=== PATIENT | male | born 1990 | race Two or more races ===

== ENCOUNTER 2021-12-08 13:34 | Inpatient (IN) | payer MEDICAID ==
[~2021-12-08] VITALS: Ht 172.7 cm; Wt 56.7 kg
[2021-12-08 14:24] LABS: BASOPHILS # (AUTO) 0.1 K/uL (0.0-0.2); BASOPHILS % (AUTO) 0.5 % (0.0-2.0); HEMATOCRIT 44 % (39-51); LYMPHOCYTES # (AUTO) 1.8 K/uL (0.8-4.8); LYMPHOCYTES % (AUTO) 10.9 % (20.0-44.0); MEAN CORPUSCULAR HGB CONC 32 g/dl (31.0-36.0); MEAN CORPUSCULAR VOLUME 93 fL (80-96); MONOCYTES % (AUTO) 5.9 % (2.0-12.0); NEUTROPHILS # (AUTO) 13.5 K/uL (1.8-8.9); NEUTROPHILS % (AUTO) 82.7 % (43.0-81.0); PLATELET COUNT (AUTO) 299 K/uL (150-450); RED BLOOD CELL COUNT(AUTO) 4.75 MIL/uL (4.5-6.0); WHITE BLOOD COUNT (AUTO) 16.3 K/uL (4.3-11.0)
--- NOTE | 2021-12-08 14:35 | NUR ---
c/o chest pain 10/10 x 5 days awke and alert hr 125b/min tachypnea rr 28/hin ekg done
--- NOTE | 2021-12-08 14:40 | NUR ---
blood drow by nurse at bed side
[2021-12-08 14:46] LABS: CALCIUM, SERUM 9.6 mg/dL (8.5-10.1); CHLORIDE 97 mmol/L (98-107); CREATININE 1.6 mg/dL (0.6-1.3); SODIUM SERUM 134 mmol/L (136-145); UREA NITROGEN, BLOOD 20 mg/dL (7-18)
[2021-12-08 14:50] LABS: POTASSIUM 6.2 mmol/L (3.5-5.1)
[2021-12-08 14:51] LABS: CARBON DIOXIDE 8 mmol/L (21-32); GLUCOSE 404 mg/dL (74-106)
[2021-12-08] MEDS ORDERED: IV NS 0.9% 1,000 ML IV PRN (15:00)
[2021-12-08] MEDS ORDERED: INSULIN REGULAR, HUMAN 100 UNITS in IV NS 0.9% 100 ML IV PRN ×2 (15:00)
--- NOTE | 2021-12-08 15:08 | NUR ---
COVID ANTIGEN SWAB DONE AND SENT TO THE LAB
[2021-12-08] MEDS ORDERED: INSU100I8 SQ (15:10)
[2021-12-08] MEDS ORDERED: INSU100I26 SQ (15:10)
[2021-12-08] MEDS ORDERED: OMEP20TA5 PO (15:10)
--- NOTE | 2021-12-08 15:45 | NUR ---
STERTED INSULIN DRIP 100UNIT IN NS 100 AT 2 UNIT /HR INFUTION AND PATENT closlsly observe pt
[2021-12-08 15:54] LABS: CREATININE 1.7 mg/dL (0.6-1.3); PHOSPHORUS 3.8 mg/dL (2.5-4.9)
[2021-12-08 16:03] LABS: POTASSIUM 4.8 mmol/L (3.5-5.1)
[2021-12-08] MEDS ORDERED: ONDANSETRON HCL/PF 4 MG/2 ML VIAL ONE (16:35)
--- NOTE | 2021-12-08 16:45 | NUR ---
pt fully awake and aler no pain noted
[2021-12-08] MEDS ORDERED: ONDANSETRON HCL/PF 4 MG/2 ML VIAL IV ONE (17:00)
[2021-12-08 17:26] LABS: BILIRUBIN,URINE SMALL (NEGATIVE); COLOR,URINE YELLOW (YELLOW); LEUKOCYTE ESTERASE ,URINE NEGATIVE (NEGATIVE); NITRITE, URINE NEGATIVE (NEGATIVE); PH,URINE 5.5 (5.0-8.0); PROTEIN,URINE TRACE mg/dl (NEGATIVE); UGLUCOSE 500 MG/DL mg/dL (NEGATIVE); UROBILINOGEN,URINE 0.2 EU/dL (0.2)
[2021-12-08 17:42] LABS: CREATININE 1.6 mg/dL (0.6-1.3); POTASSIUM 4.9 mmol/L (3.5-5.1)
[2021-12-08 17:52] LABS: MAGNESIUM 2.1 mg/dL (1.8-2.4)
[2021-12-08 18:02] LABS: BACTERIA,URINE Many /HPF (None Seen)
[2021-12-08 18:03] LABS: SQUAMOUS EPITHELIAL CELL,UR Many /HPF (None Seen); YEAST,URINE Few /HPF (None Seen)
--- NOTE | 2021-12-08 18:35 | NUR ---
CONTENUE insuline drip at 2unit/hr infused and patent
[2021-12-08] MEDS ORDERED: ONDANSETRON HCL/PF 4 MG/2 ML VIAL IVP PRN (19:00)
[2021-12-08] MEDS ORDERED: MAG HYDROX/AL HYDROX/SIMETH 30 ML UDC PO PRN (19:00)
[2021-12-08] MEDS ORDERED: ACETAMINOPHEN 325 MG TABLET PO PRN (19:00)
[2021-12-08] MEDS ORDERED: MAGNESIUM HYDROXIDE 30 ML UDC PO PRN (19:00)
[2021-12-08] MEDS ORDERED: Z GUARD REMEDY 4 OZ OINT TP PRN (19:00)
--- NOTE | 2021-12-08 19:10 | NUR ---
WATING FOR icu bed contenue insulin drip at 2 unithr
[2021-12-08] MEDS: IV NS 0.9% 1,000 ML IV SCH (19:11)
[2021-12-08 19:23] LABS: ABG BASE EXCESS -21.3 mmol/L; ABG PO2 131.9 mmHg (75.0-100.0); COHb 0.3 % (0.5-1.5); MetHb 0.4 % (0.0-1.5); O2Hb 97.5 % (94.0-97.0); SITE, ABG Right Radial; VENT MODE, BG ROOM AIR
--- NOTE | 2021-12-08 19:25 | NUR ---
hand off to SERENA RN PT awke and alert respiration spoon and easy room air 100%
[2021-12-08] MEDS ORDERED: INSULIN REGULAR, HUMAN 100 UNIT in IV NS 0.9% 99 ML IV PRN ×2 (20:30)
[2021-12-08 20:59] LABS: CREATININE 1.6 mg/dL (0.6-1.3); PHOSPHORUS 3.1 mg/dL (2.5-4.9); POTASSIUM 4.4 mmol/L (3.5-5.1)
--- NOTE | 2021-12-08 21:30 | NUR ---
REPORT GIVEN TO RUTH ANN AWAN
--- NOTE | 2021-12-08 22:10 | NUR ---
RN NOTE RECEIVED PATIENT FROM ER, TRANSFERRED TO ROOM 261. PATIENT SAFELY TRANSFERRED SELF TO BED. PATIENT IS ALERT AND ORIENTED X4, ABLE TO MAKE NEEDS KNOWN. ON ROOM AIR, NO S/S OF ANY ACUTE RESPIRATORY DISTRESS. ADMITTING DX: DKA. RECEIVED PATIENT FROM ER WITH INSULIN DRIP AT 2.02 UNITS/HR AND NS @ 125ML/HR INFUSING ON RIGHT AC #20. NO S/S OF INFILTRATION. COMPLAINED OF MILD CHEST PAIN AND BELOW RIB PAIN AND NAUSEA. VOMITED X1 DARK BLOOD TINGED LIQUID. WILL ADMINISTER ZOFRAN PRN. ORIENTED PATIENT TO STAFF, ROOM, AND USE OF CALL LIGHT. BED LOCKED AND IN LOWEST POSITION. CALL LIGHT WITHIN REACH. ALL NEEDS ANTICIPATED.
--- NOTE | 2021-12-08 22:12 | NUR ---
PATIENT TRANSFERRED UNDER ACLS
[2021-12-08 22:27] VITALS: BP 156/105
[2021-12-08 22:30] VITALS: BP 160/90
[2021-12-08 23:00] VITALS: BP 135/102
[2021-12-08] MEDS: BLOOD SUGAR DIAGNOSTIC 1 EACH STRIP IN SCH (23:05)
[2021-12-08 23:30] VITALS: BP 139/97
[2021-12-09] VITALS (37 sets, daily range): BP systolic 135–167; BP diastolic 82–104
[2021-12-09] MEDS: BLOOD SUGAR DIAGNOSTIC 1 EACH STRIP IN SCH ×22 (00:08→23:02)
[2021-12-09 00:44] LABS: CALCIUM, SERUM 8.9 mg/dL (8.5-10.1); CREATININE 1.4 mg/dL (0.6-1.3); MAGNESIUM 2.1 mg/dL (1.8-2.4); PHOSPHORUS 2.5 mg/dL (2.5-4.9); POTASSIUM 4.3 mmol/L (3.5-5.1)
--- NOTE | 2021-12-09 00:58 | NUR ---
RN NOTE RELAYED LAB (BMP,PHOS,MAG) TO BARRON MORALES. NOTIFIED BARRON PATIENT'S 0000 ACCUCHECK 127, ON INSULIN 1.9U/HR AND NS @ 125ML/HR. RECEIVED NO NEW ORDERS AT THIS TIME. WILL CONTINUE TO MONITOR.
--- NOTE | 2021-12-09 02:21 | NUR ---
RN NOTE NOTIFIED [facility] MORALES, PATIENT'S 0200 ACCUCHECK-107 AND REMAINS ON NS @ 125ML/HR. RECEIVED NEW ORDER WHEN BG<100, CHANGE FLUIDS TO D5NS @ 125ML/HR NOTED AND CARRIED OUT.
[2021-12-09] MEDS ORDERED: IV D5/ 0.9% NACL 1,000 ML IV PRN (03:00)
[2021-12-09 04:50] LABS: BASOPHILS % (AUTO) 0.1 % (0.0-2.0); EOSINOPHILS % (AUTO) 0.2 % (0.0-6.0); HEMATOCRIT 42 % (39-51); HEMOGLOBIN 13.8 g/dL (13.5-17.5); LYMPHOCYTES # (AUTO) 1.3 K/uL (0.8-4.8); LYMPHOCYTES % (AUTO) 6.8 % (20.0-44.0); MEAN CORPUSCULAR HGB CONC 33 g/dl (31.0-36.0); MEAN CORPUSCULAR VOLUME 92 fL (80-96); MONOCYTES # (AUTO) 1.4 K/uL (0.1-1.30); MONOCYTES % (AUTO) 7.8 % (2.0-12.0); NEUTROPHILS # (AUTO) 15.8 K/uL (1.8-8.9); NEUTROPHILS % (AUTO) 85.1 % (43.0-81.0); PLATELET COUNT (AUTO) 253 K/uL (150-450); RED BLOOD CELL COUNT(AUTO) 4.63 MIL/uL (4.5-6.0); WHITE BLOOD COUNT (AUTO) 18.6 K/uL (4.3-11.0)
[2021-12-09 04:57] LABS: CALCIUM, SERUM 8.3 mg/dL (8.5-10.1); CREATININE 1.4 mg/dL (0.6-1.3); MAGNESIUM 1.9 mg/dL (1.8-2.4); PHOSPHORUS 2.3 mg/dL (2.5-4.9); POTASSIUM 4.2 mmol/L (3.5-5.1)
[2021-12-09] MEDS: IV NS 0.9% 1,000 ML IV SCH (05:45)
--- NOTE | 2021-12-09 06:47 | NUR ---
RN NOTE PATIENT IS RESTING IN BED. ON ROOM AIR, NO SOB NOTED. IV ACCESS ON RIGHT AC #20 INSULIN DRIP AT 1.6 UNITS/HR AND NS @ 125ML/HR. NO S/S OF INFILTRATION. ALL NEEDS ATTENDED PROMPTLY. VOIDED X1, 300ML NOTED. BED LOCKED AND IN LOWEST POSITION. CALL LIGHT WITHIN REACH. WILL ENDORSE TO AM SHIFT.
[2021-12-09] MEDS ORDERED: IV D5/0.45 NACL 1,000 ML IV ONE (09:00)
[2021-12-09] MEDS: IV D5/0.45 NACL 1,000 ML IV PRN ×2 (09:32→19:11)
[2021-12-09 10:40] LABS: CALCIUM, SERUM 8.3 mg/dL (8.5-10.1); CREATININE 1.3 mg/dL (0.6-1.3); POTASSIUM 3.5 mmol/L (3.5-5.1)
[2021-12-09] MEDS ORDERED: K PHOS NEUTRAL 250 MG TABLET PO ONE (12:00)
[2021-12-09 14:35] LABS: CALCIUM, SERUM 8.4 mg/dL (8.5-10.1); CREATININE 1.3 mg/dL (0.6-1.3); POTASSIUM 3.4 mmol/L (3.5-5.1)
--- NOTE | 2021-12-09 15:34 | NUR ---
DR HOWELL WAS NOTIFIED OF THE RECENT K+ LEVEL=3.4 AND ANION GAP =17 AND RECENT CMP RESULT
--- NOTE | 2021-12-09 16:12 | NUR ---
WITH NEW ORDERS NOTED AT THIS TIME.
[2021-12-09] MEDS ORDERED: POTASSIUM CHLORIDE 20 MEQ TAB.PRT.SR PO ONE (17:00)
--- NOTE | 2021-12-09 19:10 | NUR ---
PT. RESTING COMFORTABLY ON BED, ALL NEEDS ATTENDED. NO SSx OF DISTRESS NOTED AT THIS TIME. CALL LIGHT IN REACH. ENDORSED TO CHRIS FOR CONTINUITY OF CARE.
[2021-12-09 19:12] LABS: CALCIUM, SERUM 8.1 mg/dL (8.5-10.1); CREATININE 1.2 mg/dL (0.6-1.3); POTASSIUM 3.4 mmol/L (3.5-5.1)
--- NOTE | 2021-12-09 19:45 | NUR ---
RN NOTE RECEIVED PT AWAKE, AOX4. NOT IN ANY DISTRESS. DENIES ANY SOB OR PAIN. ON INSULIN DRIP AT 2.39U/HR. AND D5 1/2 NS AT 100 ML/HR, INFUSING WELL. WILL CONTINUE TO MONITOR.
--- NOTE | 2021-12-09 20:28 | NUR ---
RN NOTE NOTIFIED CASHIER HOST/HOSTESS EL MORALES REGARDING PT POTASSIUM STILL 3.4. AIRCRAFT MACHINIST ORDERED TO GIVE KCL 10MEQ IV X1.
[2021-12-09] MEDS ORDERED: POTASSIUM CHLORIDE 10 MEQ/50 ML PREMIXED IVPB FOR PERIPHERAL LINE IV ONE (20:30)
[2021-12-09 22:36] LABS: CALCIUM, SERUM 8.4 mg/dL (8.5-10.1); CREATININE 1.1 mg/dL (0.6-1.3); POTASSIUM 3.8 mmol/L (3.5-5.1)
--- NOTE | 2021-12-09 23:03 | NUR ---
RN NOTE ANION GAP 12. RELAYED TO EL MORALES. ORDERED TO DC INSULIN DRIP AND CONTINUE WITH IV FLUIDS.
--- NOTE | 2021-12-09 23:27 | NUR ---
RN NOTE JAVA FRONT END WEB DEVELOPER CARMEN, ORDERED MODERATE SLIDING SCALE ACCUCHECK Q4H. CHARGE NURSE MADE AWARE.
[2021-12-09] MEDS ORDERED: DEXTROSE 50%-WATER 50 ML DISP.SYRIN IV PRN (23:30)
[2021-12-10] VITALS (11 sets, daily range): BP systolic 124–154; BP diastolic 74–93
[2021-12-10] MEDS ORDERED: BLOOD SUGAR DIAGNOSTIC 1 EACH STRIP IN SCH
[2021-12-10] MEDS: INSULIN REGULAR, HUMAN 100 UNIT/ML 3 ML VIAL SQ PRN ×3 (00:45→08:31)
[2021-12-10] MEDS: BLOOD SUGAR DIAGNOSTIC 1 EACH STRIP IN SCH ×3 (00:45→08:26)
[2021-12-10] MEDS ORDERED: INSULIN REGULAR, HUMAN 100 UNIT/ML 3 ML VIAL ONE (01:16)
[2021-12-10] MEDS: IV D5/0.45 NACL 1,000 ML IV PRN (04:37)
--- NOTE | 2021-12-10 06:35 | NUR ---
RN NOTE PT AWAKE, NOT IN ANY DISTRESS, NO CHANGES IN LOC. DENIES ANY PAIN OR SOB. CONTINUE ON IVFLUIDS D51/2 NS AT 100ML/HR, INFUSING WELL. INSULIN COVERAGE GIVEN PER SLIDING SCALE. WILL ENDORSE TO NEXT SHIFT NURSE FOR PEREZ.
--- NOTE | 2021-12-10 07:41 | NUR ---
RN OPENING NOTES PT A/O X4 , NO C/O PAIN, NO DISTRESS NO SOB, NO LABORED BREATHING, IV RA #20 GAUGE INTACT, PATENT, D5 1/2 NS INFUSING 100ML/HR PER ORDER, BED LOW TO FLOOR, WHEELS LOCKED, CALL LIGHT IN REACH, ALL NEEDS MET AT THIS TIME.
--- NOTE | 2021-12-10 09:14 | NUR ---
MD ASSESSED PT FOR D/C HOME, ASSISTED PT TO AMBULATE AROUND NURSING STATION PT ABLE TO AMBULATE ON OWN AT FULL STRENGTH, NO WEAKNESS NOTED, NO C/O PAIN, PT CALLED MOTHER / FAMILY TO DEPUTY BRAND INSPECTOR , ALL VS IN NORMAL BASELINE RANGE , NO NAUSEA NO EMESIS NOTED DURING AM SHIFT, ATE BREAKFAST AND ABLE TO HOLD IT DOWN WITH NO DISCOMFORT, BED LOW TO FLOOR ALL WHEELS LOCKED, CALL LIGHT IN PLACE. WILL PROCEED WITH D/C INFO RN CANDY PACKER NOTIFIED. FAMILY NOTIFIED.
--- NOTE | 2021-12-10 10:39 | NUR ---
MD APPROVED D/C, EDUCATIONAL INFO ON DM TYPE I PRINTED OUT AND DISCUSSION PROVIDED TO HELP PT UNDERSTAND TO MONITOR BS LEVELS DAILY PER PRIMARY MD ORDERS, PT CONTACTED MOTHER SHE WILL NON DESTRUCTIVE EVALUATION SPECIALIST 10:40 AM , PT AMBULATED WITH MYSELF FROM [facility] TO FRONT DOOR OF HOSPITAL SAFE TRANSFER OUT , ALL VS IN BASELINE NORMAL RANGE, NO C/O PAIN NO SOB NOTED, ALL BELONGINGS TAKEN WITH PATIENT, FAMILY NOTIFIED , MD AWARE OF D/C. IV REMOVED SITE CLEANSED AND GAUZE/TAPE APPLIED NO SIGNIFICANT BLEEDING NOTED.
[2021-12-10] MEDS ORDERED: K PHOS NEUTRAL 250 MG TABLET PO ONE (11:00)
== END 2021-12-10 11:31 | disposition home or self-care (01) | DRG 420 ==
LOC: ER 13:41 → TRANSITION 18:37 → ICU 19:56
PROVIDERS: ADMIT Internal Medicine; ATTEND Internal Medicine
DX: E10.10 Type 1 diabetes mellitus with ketoacidosis without coma (principal); N17.0 Acute kidney failure with tubular necrosis; E87.5 Hyperkalemia; Z20.822 Contact with and (suspected) exposure to COVID-19; E87.1 Hypo-osmolality and hyponatremia; K52.9 Noninfective gastroenteritis and colitis, unspecified; Z91.14 Patient's other noncompliance with medication regimen; Z79.4 Long term (current) use of insulin; E86.1 Hypovolemia
CPT/HCPCS: 36415; 36600; 71045-TC; 80048-TC; 81001; 82010-TC; 82962-TC; 83735-TC; 84100-TC; 84484-TC; 85025-TC; 87081-TC; 87086-TC; C9803; G0378; J1815; J2405; J3480; J3490; J7030

== ENCOUNTER 2022-09-20 20:10 | Emergency (ER) | payer MEDICAID ==
[~2022-09-20] VITALS: Ht 170.2 cm; Wt 63.5 kg
[~2022-09-20 20:10] MED LIST: INSU100I26 SQ; INSU100I8 SQ; OMEP20TA5 PO
--- NOTE | 2022-09-20 21:43 | NUR ---
BRISA BS 249; DR. KELSEA ROSALES AWARE
--- NOTE | 2022-09-20 21:45 | NUR ---
Dr. Gonzales at bedside.
--- NOTE | 2022-09-20 21:53 | NUR ---
XRAY DONE AT BEDSIDE
--- NOTE | 2022-09-20 21:58 | NUR ---
Urine sample collected and sent to lab.
[2022-09-20] MEDS ORDERED: ONDANSETRON HCL/PF 4 MG/2 ML VIAL IVP ONE (22:00)
[2022-09-20] MEDS ORDERED: FAMOTIDINE/PF INJ 20 MG/2 ML VIAL IV ONE ×2 (22:00→22:33)
[2022-09-20] MEDS ORDERED: IV NS 0.9% 1,000 ML BAG IV ONE (22:00)
[2022-09-20 22:31] LABS: ABG BASE EXCESS 1.1 mmol/L; ABG PCO2 45.4 mmHg (35.0-45.0); ABG PH 7.385 (7.350-7.450); ABG PO2 23.7 mmHg (75.0-100.0); COHb 0.8 % (0.5-1.5); MetHb 0.4 % (0.0-1.5); O2Hb 47.1 % (94.0-97.0); SITE, ABG Left Radial; VENT MODE, BG ROOM AIR
--- NOTE | 2022-09-20 22:31 | NUR ---
IV RONN INSERTED ON LEFT FA G20. BLOOD DRAWN AND SENT TO LAB
[2022-09-20] MEDS ORDERED: ONDANSETRON HCL/PF 4 MG/2 ML VIAL ONE (22:33)
[2022-09-20 22:52] LABS: BILIRUBIN,URINE 1+ (NEGATIVE); COLOR,URINE YELLOW (YELLOW); LEUKOCYTE ESTERASE ,URINE NEGATIVE (NEGATIVE); NITRITE, URINE NEGATIVE (NEGATIVE); PH,URINE 5.5 (5.0-8.0); PROTEIN,URINE NEGATIVE (NEGATIVE); UGLUCOSE 3+ mg/dL (NEGATIVE); UROBILINOGEN,URINE 0.2 EU/dL (0.2)
[2022-09-20 23:26] LABS: BASOPHILS # (AUTO) 0.1 K/uL (0.0-0.2); BASOPHILS % (AUTO) 0.7 % (0.0-2.0); EOSINOPHILS % (AUTO) 1.1 % (0.0-6.0); HEMATOCRIT 37 % (39-51); HEMOGLOBIN 12.3 g/dL (13.5-17.5); LYMPHOCYTES # (AUTO) 2.1 K/uL (0.8-4.8); LYMPHOCYTES % (AUTO) 25.4 % (20.0-44.0); MEAN CORPUSCULAR HGB CONC 34 g/dl (31.0-36.0); MEAN CORPUSCULAR VOLUME 87 fL (80-96); MONOCYTES # (AUTO) 0.5 K/uL (0.1-1.30); MONOCYTES % (AUTO) 5.7 % (2.0-12.0); NEUTROPHILS # (AUTO) 5.7 K/uL (1.8-8.9); NEUTROPHILS % (AUTO) 67.1 % (43.0-81.0); PLATELET COUNT (AUTO) 232 K/uL (150-450); RED BLOOD CELL COUNT(AUTO) 4.21 MIL/uL (4.5-6.0); WHITE BLOOD COUNT (AUTO) 8.4 K/uL (4.3-11.0)
[2022-09-20 23:45] LABS: BACTERIA,URINE Rare /HPF (None Seen); RBC,URINE 0-2 /HPF (0-2); SQUAMOUS EPITHELIAL CELL,UR Rare /HPF (None Seen); WBC,URINE 0-2 /HPF (0-3); YEAST,URINE Moderate /HPF (None Seen)
[2022-09-20 23:50] LABS: CALCIUM, SERUM 9.3 mg/dL (8.5-10.1); CARBON DIOXIDE 31 mmol/L (21-32); CHLORIDE 96 mmol/L (98-107); CREATININE 1.5 mg/dL (0.6-1.3); GLUCOSE 248 mg/dL (74-106); POTASSIUM 4.4 mmol/L (3.5-5.1); SODIUM SERUM 133 mmol/L (136-145); UREA NITROGEN, BLOOD 22 mg/dL (7-18)
[2022-09-20 23:56] LABS: ALANINE AMINOTRANSFERASE 28 U/L (12-78); ALKALINE PHOSPHATASE 110 U/L (46-116); ASPARTATE AMINOTRANSFERASE 22 U/L (15-37); BILIRUBIN,DIRECT 0.2 mg/dL (0.0-0.2); BILIRUBIN,TOTAL 0.9 mg/dL (0.2-1.0); LIPASE 100 U/L (73-393); TOTAL PROTEIN, SERUM 7.3 g/dL (6.4-8.2)
[2022-09-21] MEDS ORDERED: INSULIN REGULAR, HUMAN 100 UNIT/ML 10 ML VIAL SQ ONE (00:30)
[2022-09-21] MEDS ORDERED: INSULIN REGULAR, HUMAN 100 UNIT/ML 10 ML VIAL ONE (00:36)
[2022-09-21] MEDS ORDERED: ONDA4TAB5 PO (00:44)
[2022-09-21] MEDS ORDERED: INSU100I30 SQ (00:44)
--- NOTE | 2022-09-21 00:45 | NUR ---
Dr. Gonzales at bedside.
--- NOTE | 2022-09-21 01:05 | NUR ---
IV removed. Catheter intact and site benign. Pressure and 4x4 applied to site. No bleeding noted.
--- NOTE | 2022-09-21 01:05 | NUR ---
Patient discharged to home in stable condition. Written and verbal after care instructions given. Patient verbalizes understanding of instruction.
[2022-09-21 01:06] VITALS: BP 125/70
== END 2022-09-21 01:07 | disposition home or self-care (01) ==
LOC: ER 20:14
DX: E11.65 Type 2 diabetes mellitus with hyperglycemia (principal); Z79.899 Other long term (current) drug therapy
CPT/HCPCS: 99285; 96374; 71045; 96375; 93005; 82803; 85025; 80048; 87086; 82010; 83690; 80076; 81001; 36415; 84484; 82962; 36600 ×2; 96372; J3490; J2405; J7030; J1815

== ENCOUNTER 2022-12-28 13:45 | Inpatient (IN) | payer MEDICAID ==
[~2022-12-28] VITALS: Ht 172.7 cm; Wt 57.2 kg
[~2022-12-28 13:45] MED LIST changes: +INSU100I30 SQ; +ONDA4TAB5 PO
--- NOTE | 2022-12-28 14:00 | NUR ---
BLOOD GLUCOSE READING, HIGH
[2022-12-28] MEDS ORDERED: ONDANSETRON HCL/PF 4 MG/2 ML VIAL ONE (14:23)
--- NOTE | 2022-12-28 14:29 | NUR ---
24G IV ESTABLISHED L FA. LABS DRAWN AND COLLECTED AT BEDSIDE.
[2022-12-28] MEDS ORDERED: ONDANSETRON HCL/PF 4 MG/2 ML VIAL IV ONE (14:30)
[2022-12-28] MEDS ORDERED: IV NS 0.9% 250 ML BAG IV ONE (14:30)
[2022-12-28] MEDS ORDERED: IV NS 0.9% 1,000 ML IV ONE (15:00)
--- NOTE | 2022-12-28 15:16 | NUR ---
urine collected and sent to the lab
[2022-12-28 15:23] LABS: BASOPHILS # (AUTO) 0.1 K/uL (0.0-0.2); BASOPHILS % (AUTO) 0.5 % (0.0-2.0); HEMATOCRIT 46 % (39-51); HEMOGLOBIN 13.2 g/dL (13.5-17.5); LYMPHOCYTES # (AUTO) 0.6 K/uL (0.8-4.8); LYMPHOCYTES % (AUTO) 2.7 % (20.0-44.0); MEAN CORPUSCULAR HGB CONC 29 g/dl (31.0-36.0); MEAN CORPUSCULAR VOLUME 104 fL (80-96); MONOCYTES % (AUTO) 9.3 % (2.0-12.0); NEUTROPHILS # (AUTO) 19.2 K/uL (1.8-8.9); NEUTROPHILS % (AUTO) 87.5 % (43.0-81.0); PLATELET COUNT (AUTO) 338 K/uL (150-450); RED BLOOD CELL COUNT(AUTO) 4.38 MIL/uL (4.5-6.0)
[2022-12-28 15:29] LABS: BILIRUBIN,URINE 1+ (NEGATIVE); COLOR,URINE YELLOW (YELLOW); LEUKOCYTE ESTERASE ,URINE NEGATIVE (NEGATIVE); NITRITE, URINE NEGATIVE (NEGATIVE); PH,URINE 5.5 (5.0-8.0); PROTEIN,URINE NEGATIVE (NEGATIVE); UGLUCOSE 3+ mg/dL (NEGATIVE); UROBILINOGEN,URINE 0.2 EU/dL (0.2)
[2022-12-28] MEDS ORDERED: MORPHINE SULFATE INJ 2 MG/ML DISP.SYRIN IV ONE (15:30)
[2022-12-28 15:47] LABS: BACTERIA,URINE Few /HPF (None Seen); RBC,URINE 0-2 /HPF (0-2); WBC,URINE NONE SEEN /HPF (0-3)
[2022-12-28 15:48] LABS: SQUAMOUS EPITHELIAL CELL,UR Few /HPF (None Seen)
--- NOTE | 2022-12-28 15:51 | NUR ---
[facility] CALLED FINANCIAL ADMINISTRATION OFFICER PAGED.
[2022-12-28] MEDS ORDERED: MORPHINE SULFATE INJ 4 MG/ML DISP.SYRIN ONE (15:56)
[2022-12-28 15:57] LABS: ALBUMIN 3.9 g/dL (3.4-5.0); BILIRUBIN,DIRECT 0.2 mg/dL (0.0-0.2); BILIRUBIN,TOTAL 1.1 mg/dL (0.2-1.0); CALCIUM, SERUM 9.8 mg/dL (8.5-10.1); CREATININE 3.1 mg/dL (0.6-1.3); MAGNESIUM 3.3 mg/dL (1.8-2.4); PHOSPHORUS 6.5 mg/dL (2.5-4.9); POTASSIUM 5.7 mmol/L (3.5-5.1); TOTAL PROTEIN, SERUM 8.2 g/dL (6.4-8.2)
[2022-12-28 16:26] LABS: SITE, VBG Right Radial; VBG COHb 0.3 %; VBG MetHb 0.4 %; VBG O2Hb 96.3 %; VENT MODE, VBG 21%
--- NOTE | 2022-12-28 16:26 | NUR ---
[facility] CALLED, ROAD MENDER PAGED.
[2022-12-28] MEDS ORDERED: IV NS 0.9% 1,000 ML IV PRN (16:30)
--- NOTE | 2022-12-28 16:36 | NUR ---
BG 1045
--- NOTE | 2022-12-28 16:50 | NUR ---
RAC 20G
--- NOTE | 2022-12-28 16:54 | NUR ---
covid swab collected and sent to lab
[2022-12-28] MEDS: INSULIN REGULAR, HUMAN 100 UNITS in IV NS 0.9% 100 ML IV PRN ×4 (17:05→18:49)
[2022-12-28 17:09] LABS: CALCIUM, SERUM 8.5 mg/dL (8.5-10.1); CREATININE 2.7 mg/dL (0.6-1.3); MAGNESIUM 2.9 mg/dL (1.8-2.4); PHOSPHORUS 5.7 mg/dL (2.5-4.9); POTASSIUM 5.5 mmol/L (3.5-5.1)
--- NOTE | 2022-12-28 17:14 | NUR ---
GOT BED 258 ADMITTING INFORMED.
--- NOTE | 2022-12-28 17:43 | NUR ---
HANDOFF REPORT GIVEN TO MIGUEL VALLECILLO FOR INPATIENT SERVICES.
--- NOTE | 2022-12-28 18:10 | NUR ---
PT TRANSFERED W/ ACLS PROTOCOL RN AND EMT AT BEDSIDE. VITAL STABLE THROUGHT [facility] ([place] ICU NURSE AT BEDSIDE TO RECEIVE PT./.
[2022-12-28 18:25] VITALS: BP 148/92
[2022-12-28] MEDS ORDERED: INSULIN REGULAR, HUMAN 100 UNIT in IV NS 0.9% 99 ML IV PRN ×4 (18:30→19:00)
[2022-12-28] MEDS ORDERED: ONDANSETRON HCL/PF 4 MG/2 ML VIAL IVP PRN (18:30)
[2022-12-28 18:35] LABS: CALCIUM, SERUM 8.1 mg/dL (8.5-10.1); CREATININE 2.6 mg/dL (0.6-1.3); MAGNESIUM 2.8 mg/dL (1.8-2.4); PHOSPHORUS 4.4 mg/dL (2.5-4.9); POTASSIUM 4.6 mmol/L (3.5-5.1)
[2022-12-28] MEDS: IV NS 0.9% 1,000 ML IV PRN ×2 (18:55→21:48)
[2022-12-28] MEDS: BLOOD SUGAR DIAGNOSTIC 1 EACH STRIP IN SCH ×5 (19:03→23:03)
--- NOTE | 2022-12-28 19:15 | NUR ---
OPENING NOTES RECEIVED REPORT FROM DAY RN. PATIENT AWAKE, ORIENTED X4. INSULIN INFUSION AT 20 UNITS PER HOUR AND IV NS INFUSING AT 200MLS/HR. ON INSULIN GTT PROTOCOL. WILL DO ACCU CHECKS EVERY HR.
[2022-12-28 20:00] VITALS: BP 128/89
[2022-12-28 21:00] VITALS: BP 112/74
[2022-12-28 22:00] VITALS: BP 131/73
[2022-12-28 22:19] LABS: CALCIUM, SERUM 9.1 mg/dL (8.5-10.1); CREATININE 2.5 mg/dL (0.6-1.3); PHOSPHORUS 2.8 mg/dL (2.5-4.9); POTASSIUM 3.8 mmol/L (3.5-5.1)
--- NOTE | 2022-12-28 22:20 | NUR ---
RN NOTES NOTIFIED DUONG MCKAY REGARDING LATEST BMP RESULT, LATEST ACCUCHECKED- 249 mg/dL, PER SONIA CHANGED IV FLUID TO D5 1/2 NS WITH 20 MEQ KCL @ 150 ML/HR NOTED AND CARRIED OUT.
[2022-12-28] MEDS ORDERED: IV PREMIX D5 1/2NS + KCL 1,000 ML IV PRN (22:30)
[2022-12-28 23:00] VITALS: BP 134/83
[2022-12-28] MEDS ORDERED: IV PREMIX D5 1/2NS + KCL 1,000 ML IV ONE (23:05)
[2022-12-29] VITALS (21 sets, daily range): BP systolic 122–155; BP diastolic 61–101
[2022-12-29] MEDS: BLOOD SUGAR DIAGNOSTIC 1 EACH STRIP IN SCH ×11 (00:03→21:25)
[2022-12-29 02:16] LABS: CALCIUM, SERUM 9.1 mg/dL (8.5-10.1); CREATININE 2.2 mg/dL (0.6-1.3); POTASSIUM 4.3 mmol/L (3.5-5.1)
--- NOTE | 2022-12-29 02:24 | NUR ---
RN NOTES NOTIFIED DUONG MCKAY REGARDING LATEST BMP RESULT, LATEST ACCUCHECKED- 180 mg/dL, NO NEW ORDER.
[2022-12-29 05:42] LABS: BASOPHILS # (AUTO) 0.1 K/uL (0.0-0.2); BASOPHILS % (AUTO) 0.4 % (0.0-2.0); EOSINOPHILS % (AUTO) 0.1 % (0.0-6.0); HEMATOCRIT 35 % (39-51); HEMOGLOBIN 11.7 g/dL (13.5-17.5); MEAN CORPUSCULAR HGB CONC 34 g/dl (31.0-36.0); MEAN CORPUSCULAR VOLUME 90 fL (80-96); MONOCYTES # (AUTO) 1.7 K/uL (0.1-1.30); MONOCYTES % (AUTO) 10.4 % (2.0-12.0); NEUTROPHILS # (AUTO) 13.3 K/uL (1.8-8.9); NEUTROPHILS % (AUTO) 83.1 % (43.0-81.0); PLATELET COUNT (AUTO) 235 K/uL (150-450); RED BLOOD CELL COUNT(AUTO) 3.88 MIL/uL (4.5-6.0)
[2022-12-29 06:05] LABS: CALCIUM, SERUM 8.8 mg/dL (8.5-10.1); CREATININE 1.9 mg/dL (0.6-1.3); MAGNESIUM 2.7 mg/dL (1.8-2.4); PHOSPHORUS 2.8 mg/dL (2.5-4.9); POTASSIUM 4.4 mmol/L (3.5-5.1)
[2022-12-29 06:08] LABS: THYROID STIMULATING HORMONE 0.638 uIU/mL (0.358-3.74)
[2022-12-29] MEDS ORDERED: DEXTROSE 50%-WATER 50 ML DISP.SYRIN IV PRN (06:30)
[2022-12-29] MEDS ORDERED: *INSULIN REGULAR(HUMULIN R)HUM 100 UNIT/ML VIAL SQ PRN (06:30)
--- NOTE | 2022-12-29 07:00 | NUR ---
STABLE THROUGHOUT SHIFT. INSULIN GTT AND HOURLY ACCU CHECKS DISCONTINUED AND CHANGED TO AGGRESSIVE SLIDING SCALE. REPORTED OFF TO ONCOMING SHIFT.
[2022-12-29] MEDS: INSULIN REGULAR, HUMAN 100 UNIT/ML 3 ML VIAL SQ PRN ×3 (07:57→16:53)
[2022-12-29] MEDS ORDERED: PANTOPRAZOLE 40 MG VIAL IV SCH (09:00)
[2022-12-29] MEDS: IV 1/2NS 1000 ML 1,000 ML IV PRN ×2 (12:23→21:35)
--- NOTE | 2022-12-29 13:15 | NUR ---
RN NOTES SPOKE TO HONING MACHINE TRY OUT SETTER SHARON WHO STATED THAT SHE SPOKE TO PT'S MOTHER WHO TOLD HER THAT PT MAY BE DEPRESSED. SPOKE WITH PT AND PT DENIES ANY FEELINGS OF DEPRESSION AT THIS TIME AND HAS REFUSED PSYCH CONSULT.
--- NOTE | 2022-12-29 17:30 | NUR ---
RN CLOSING NOTES PT BEING DOWNGRADED TO M/S STATUS. PT IS ALERT AND ORIENTED. NO COMPLAINT OF PAIN AT THIS TIME. PT IS STABLE, VITALS STABLE. REPORT GIVEN TO SAGE VALLECILLO FOR CONTINUATION OF CARE.
--- NOTE | 2022-12-29 17:40 | NUR ---
RN NOTE RECEIVED PATIENT TRANSFERRED FROM ICU, IN BED, ALERT, ORIENTED X4, ABLE TO MAKE NEEDS KNOWN, DENIES ANY PAIN OR DISCOMFORT AT THIS TIME. VS 138/98 HR 111 RESP 18, TEMPT 98.2, O2 99%, SKIN INTACT. IV ACCESS ON RAC MONICO 18, LAC MONICO 18, R HAND MONICO 24, ALL PATENT AND FLUSHING WELL, ON CONTINUOUS 0.45 % SODIUM CHLORIDE AT 100 CC/HR. PATIENT TOLERATING WELL. SAFETY MEASURES IMPLEMENTED, HEAD OF BED ELEVATED, BED IN LOWEST AND LOCKED POSITION, SIDE RAILS UP X2. WILL CONTINUE TO MONITOR.
--- NOTE | 2022-12-29 19:02 | NUR ---
RN CLOSING NOTE PATIENT IN BED, ALERT, ORIENTED X4, ABLE TO MAKE NEEDS KNOWN, DENIES ANY PAIN OR DISCOMFORT, ON ROOM AIR O2 96%, NO SOB OR DISTRESS NOTED. SKIN INTACT. IV ACCESS ON RAC MONICO 18, LAC MONICO 18, R HAND MONICO 24, ALL PATENT AND FLUSHING WELL, ON CONTINUOUS 0.45 % SODIUM CHLORIDE AT 100 CC/HR. PATIENT TOLERATING WELL. SAFETY MEASURES IMPLEMENTED, HEAD OF BED ELEVATED, BED IN LOWEST AND LOCKED POSITION, SIDE RAILS UP X2. REPORT GIVEN TO FPGA ENGINEER NURSE FOR CONTINUING OF CARE.
--- NOTE | 2022-12-29 19:46 | NUR ---
MS RN OPENING NOTE PATIENT SLEEPING IN BED, EASILY AWAKENED, ALERT/ORIENTED X 4, PT ABLE TO MAKE NEEDS KNOWN. PATIENT STABLE ON RA, NO S/S OF DISTRESS OR SOB NOTED, BREATHING EVEN AND UNLABORED. IV ACCESS ON RAC #18G AND RIGHT HAND #24G INTACT AND SALINE LOCKED, LAC #18G INTACT AND INFUSING 1/2 NS @ 100 ML/HR. SAFETY MEASURES IN PLACE: CALL LIGHT AND BEDSIDE TABLE WITHIN REACH, SIDE RAILS UP X 2, BED LOCKED IN LOWEST POSITION. WILL CONTINUE TO MONITOR PATIENT
[2022-12-30 04:00] VITALS: BP 145/87
[2022-12-30 06:18] LABS: BASOPHILS % (AUTO) 0.3 % (0.0-2.0); EOSINOPHILS % (AUTO) 0.4 % (0.0-6.0); HEMATOCRIT 30 % (39-51); HEMOGLOBIN 9.6 g/dL (13.5-17.5); LYMPHOCYTES # (AUTO) 1.2 K/uL (0.8-4.8); LYMPHOCYTES % (AUTO) 17.4 % (20.0-44.0); MEAN CORPUSCULAR HGB CONC 32 g/dl (31.0-36.0); MEAN CORPUSCULAR VOLUME 91 fL (80-96); MONOCYTES # (AUTO) 0.6 K/uL (0.1-1.30); MONOCYTES % (AUTO) 8.8 % (2.0-12.0); NEUTROPHILS # (AUTO) 5.2 K/uL (1.8-8.9); NEUTROPHILS % (AUTO) 73.1 % (43.0-81.0); PLATELET COUNT (AUTO) 149 K/uL (150-450); RED BLOOD CELL COUNT(AUTO) 3.27 MIL/uL (4.5-6.0); WHITE BLOOD COUNT (AUTO) 7.2 K/uL (4.3-11.0)
[2022-12-30 06:34] LABS: ALBUMIN 2.5 g/dL (3.4-5.0); BILIRUBIN,TOTAL 0.5 mg/dL (0.2-1.0); CALCIUM, SERUM 8.3 mg/dL (8.5-10.1); CREATININE 1.3 mg/dL (0.6-1.3); MAGNESIUM 2.3 mg/dL (1.8-2.4); PHOSPHORUS 1.9 mg/dL (2.5-4.9); POTASSIUM 4.3 mmol/L (3.5-5.1); TOTAL PROTEIN, SERUM 5.5 g/dL (6.4-8.2)
--- NOTE | 2022-12-30 06:56 | NUR ---
MS RN CLOSING NOTE PATIENT SLEEPING IN BED, EASILY AWAKENED, ALERT/ORIENTED X 4, PT ABLE TO MAKE NEEDS KNOWN. PATIENT STABLE ON RA, NO S/S OF DISTRESS OR SOB NOTED, BREATHING EVEN AND UNLABORED. IV ACCESS ON RAC #18G INTACT AND INFUSING 1/2 NS @ 100 ML/HR, RIGHT HAND #24G & LAC #18G INTACT AND SALINE LOCKED. MEDICATIONS GIVEN ORDERED, PT NEEDS MET THROUGHOUT SHIFT. LAB CALLED FOR CRITICAL LAB BLOOD SUGAR 451, COMPLETED ACCU CHECK AND GOT BS OF 412, WILL ENDORSE TO DAYSHIFT RN TO CONTACT MD IT IS NOW CHANGE OF SHIFT. SAFETY MEASURES IN PLACE: CALL LIGHT AND BEDSIDE TABLE WITHIN REACH, SIDE RAILS UP X 2, BED LOCKED IN LOWEST POSITION. WILL ENDORSE TO DAYSHIFT RN FOR CONTINUITY OF CARE
[2022-12-30] MEDS: BLOOD SUGAR DIAGNOSTIC 1 EACH STRIP IN SCH ×2 (07:26→11:33)
[2022-12-30] MEDS: INSULIN REGULAR, HUMAN 100 UNIT/ML 3 ML VIAL SQ PRN ×2 (07:30→11:37)
[2022-12-30] MEDS: IV 1/2NS 1000 ML 1,000 ML IV PRN (08:23)
[2022-12-30] MEDS ORDERED: PANTOPRAZOLE 40 MG TABLET.DR PO SCH (09:00)
[2022-12-30 12:00] VITALS: BP 138/79
[2022-12-30] MEDS ORDERED: K PHOS NEUTRAL 250 MG TABLET PO ONE (16:00)
--- NOTE | 2022-12-30 16:03 | NUR ---
PATIENT DISCHARGED, D/C INSTRUCTIONS PROVIDED VERBALLY, PT REFUSED TO GET D/C PRINTED PACKAGE. PER PT WORDS, HE IS BEING PICKED UP BY HIS SISTER.
== END 2022-12-30 16:09 | disposition home or self-care (01) | DRG 420 ==
LOC: ER 13:46 → ICU 17:20 → MEDSG1 12-29 17:33
DX: E10.10 Type 1 diabetes mellitus with ketoacidosis without coma (principal); N17.9 Acute kidney failure, unspecified; E87.0 Hyperosmolality and hypernatremia; E87.1 Hypo-osmolality and hyponatremia; E87.5 Hyperkalemia; Z79.4 Long term (current) use of insulin; D72.829 Elevated white blood cell count, unspecified; T50.2X5A Adverse effect of carbonic-anhydrase inhibitors, benzothiadiazides and other diuretics, initial encounter; Y92.9 Unspecified place or not applicable
CPT/HCPCS: 36415; 36600; 80048-TC; 80053-TC; 80061-TC; 80076-TC; 81001; 82010-TC; 82803-TC; 82962-TC; 83690-TC; 83735-TC; 84100-TC; 84443-TC; 84484-TC; 85025-TC; 87081-TC; A4223; C9113; C9803; G0378; J1815; J2270; J2405; J3490; J7030

== ENCOUNTER 2023-06-19 13:55 | Inpatient (IN) | payer MEDICAID ==
[~2023-06-19] VITALS: Ht 172.7 cm; Wt 60.5 kg
[2023-06-19] MEDS ORDERED: INSULIN REGULAR, HUMAN 100 UNIT/ML 10 ML VIAL ONE (14:24)
[2023-06-19] MEDS ORDERED: PANTOPRAZOLE 40 MG VIAL ONE (14:24)
[2023-06-19] MEDS ORDERED: ONDANSETRON HCL/PF 4 MG/2 ML VIAL ONE (14:24)
[2023-06-19] MEDS ORDERED: INSULIN REGULAR, HUMAN 100 UNIT/ML 10 ML VIAL IV ONE (14:30)
[2023-06-19] MEDS ORDERED: ONDANSETRON HCL/PF 4 MG/2 ML VIAL IV ONE (14:30)
[2023-06-19] MEDS ORDERED: PANTOPRAZOLE 40 MG VIAL IV ONE (14:30)
[2023-06-19] MEDS ORDERED: FAMOTIDINE/PF INJ 20 MG/2 ML VIAL IV ONE (14:30)
[2023-06-19] MEDS ORDERED: IV NS 0.9% 1,000 ML BAG IV ONE (14:30)
[2023-06-19 14:59] LABS: BASOPHILS # (AUTO) 0.1 K/uL (0.0-0.2); BASOPHILS % (AUTO) 0.4 % (0.0-2.0); HEMATOCRIT 42 % (39-51); HEMOGLOBIN 13.2 g/dL (13.5-17.5); LYMPHOCYTES # (AUTO) 2.4 K/uL (0.8-4.8); LYMPHOCYTES % (AUTO) 13.5 % (20.0-44.0); MEAN CORPUSCULAR HEMOGLOBIN 30 PG (26.0-33.0); MEAN CORPUSCULAR HGB CONC 32 g/dl (31.0-36.0); MEAN CORPUSCULAR VOLUME 93 fL (80-96); MONOCYTES # (AUTO) 1.3 K/uL (0.1-1.30); MONOCYTES % (AUTO) 7.3 % (2.0-12.0); NEUTROPHILS % (AUTO) 78.8 % (43.0-81.0); RED BLOOD CELL COUNT(AUTO) 4.49 MIL/uL (4.5-6.0); RED CELL DISTRIBUTION WIDTH 13.5 % (11.5-15.0); WHITE BLOOD COUNT (AUTO) 17.8 K/uL (4.3-11.0)
[2023-06-19 15:15] LABS: CALCIUM, SERUM 10.2 mg/dL (8.5-10.1); CREATININE 2.8 mg/dL (0.6-1.3); POTASSIUM 5.2 mmol/L (3.5-5.1)
[2023-06-19 15:24] LABS: BILIRUBIN,DIRECT 0.1 mg/dL (0.0-0.2); BILIRUBIN,TOTAL 0.6 mg/dL (0.2-1.0); TOTAL PROTEIN, SERUM 8.3 g/dL (6.4-8.2)
[2023-06-19] MEDS ORDERED: INSU100V7 SQ (15:27)
[2023-06-19] MEDS ORDERED: INSU100V11 SQ (15:27)
[2023-06-19 15:30] LABS: PLATELET COUNT (AUTO) 371 K/uL (150-450)
[2023-06-19] MEDS ORDERED: IV NS 0.9% 1,000 ML IV PRN ×2 (16:30→19:00)
[2023-06-19] MEDS ORDERED: INSULIN REGULAR, HUMAN 100 UNITS in IV NS 0.9% 100 ML IV PRN ×2 (16:30)
[2023-06-19 16:44] LABS: CALCIUM, SERUM 8.4 mg/dL (8.5-10.1); CREATININE 2.6 mg/dL (0.6-1.3); MAGNESIUM 2.8 mg/dL (1.8-2.4); PHOSPHORUS 4.8 mg/dL (2.5-4.9); POTASSIUM 4.4 mmol/L (3.5-5.1)
[2023-06-19] MEDS: IV D5/ 0.9% NACL 1,000 ML IV PRN ×2 (17:03→20:15)
[2023-06-19 18:22] LABS: CALCIUM, SERUM 8.4 mg/dL (8.5-10.1); CREATININE 2.3 mg/dL (0.6-1.3); POTASSIUM 4.3 mmol/L (3.5-5.1)
[2023-06-19 18:25] LABS: MAGNESIUM 2.7 mg/dL (1.8-2.4)
[2023-06-19] MEDS ORDERED: MAGNESIUM HYDROXIDE 30 ML UDC PO PRN (19:00)
[2023-06-19] MEDS ORDERED: ONDANSETRON HCL/PF 4 MG/2 ML VIAL IVP PRN (19:00)
[2023-06-19] MEDS ORDERED: ACETAMINOPHEN 325 MG TABLET PO PRN (19:00)
[2023-06-19] MEDS ORDERED: Z GUARD REMEDY 4 OZ OINT TP PRN (19:00)
[2023-06-19] MEDS ORDERED: MAG HYDROX/AL HYDROX/SIMETH 30 ML UDC PO PRN (19:00)
[2023-06-19 21:12] LABS: CALCIUM, SERUM 8.1 mg/dL (8.5-10.1); CREATININE 2.1 mg/dL (0.6-1.3); POTASSIUM 4.2 mmol/L (3.5-5.1)
[2023-06-19 21:15] LABS: MAGNESIUM 2.4 mg/dL (1.8-2.4)
[2023-06-20] VITALS (27 sets, daily range): BP systolic 113–200; BP diastolic 71–120; TEMP 98.5–99.6; O2SAT 98–100
[2023-06-20] MEDS: IV D5/ 0.9% NACL 1,000 ML IV PRN (01:12)
[2023-06-20 01:58] LABS: SITE, VBG Right Radial; VBG BASE EXCESS -10.3 mmol/L (-3-3); VBG COHb 0.3 %; VBG MetHb 0.3 %; VBG OXYGEN SATURATION 97.6 %; VBG PCO2 22.9 mmHg (40-52); VBG PH 7.373 (7.31-7.41); VBG TOTAL HEMOGLOBIN 12.7 G/dL (13.5-18.0); VENT MODE, VBG room air
[2023-06-20] MEDS ORDERED: DEXTROSE 50%-WATER 50 ML DISP.SYRIN IV PRN (05:00)
[2023-06-20] MEDS: IV NS 0.9% 1,000 ML IV PRN ×3 (05:18→22:46)
[2023-06-20 05:40] LABS: BASOPHILS # (AUTO) 0.1 K/uL (0.0-0.2); BASOPHILS % (AUTO) 0.5 % (0.0-2.0); EOSINOPHILS # (AUTO) 0.1 K/uL (0.0-0.7); EOSINOPHILS % (AUTO) 0.8 % (0.0-6.0); HEMATOCRIT 29 % (39-51); HEMOGLOBIN 9.7 g/dL (13.5-17.5); MEAN CORPUSCULAR HEMOGLOBIN 31 PG (26.0-33.0); MEAN CORPUSCULAR HGB CONC 34 g/dl (31.0-36.0); MEAN CORPUSCULAR VOLUME 90 fL (80-96); MONOCYTES # (AUTO) 1.1 K/uL (0.1-1.30); MONOCYTES % (AUTO) 11.1 % (2.0-12.0); NEUTROPHILS # (AUTO) 6.4 K/uL (1.8-8.9); NEUTROPHILS % (AUTO) 66.6 % (43.0-81.0); PLATELET COUNT (AUTO) 230 K/uL (150-450); RED BLOOD CELL COUNT(AUTO) 3.15 MIL/uL (4.5-6.0); WHITE BLOOD COUNT (AUTO) 9.6 K/uL (4.3-11.0)
[2023-06-20 05:54] LABS: CALCIUM, SERUM 8.1 mg/dL (8.5-10.1); CREATININE 1.9 mg/dL (0.6-1.3); MAGNESIUM 2.5 mg/dL (1.8-2.4); PHOSPHORUS 2.1 mg/dL (2.5-4.9); POTASSIUM 3.7 mmol/L (3.5-5.1)
[2023-06-20] MEDS ORDERED: POTASSIUM PHOSPHATE MM 15 MMOL in IV NS 0.9% 250 ML IV SCH (08:00)
[2023-06-20] MEDS: BLOOD SUGAR DIAGNOSTIC 1 EACH STRIP VI SCH ×4 (08:25→22:03)
[2023-06-20] MEDS: INSULIN REGULAR, HUMAN 100 UNIT/ML 3 ML VIAL SQ PRN ×3 (08:28→18:10)
[2023-06-20 10:30] LABS: CALCIUM, SERUM 7.8 mg/dL (8.5-10.1); CREATININE 1.9 mg/dL (0.6-1.3); POTASSIUM 3.8 mmol/L (3.5-5.1)
[2023-06-20] MEDS ORDERED: POTASSIUM PHOSPHATE MM 7.5 MMOL in IV NS 0.9% 100 ML IV SCH (11:00)
[2023-06-20] MEDS: POTASSIUM PHOSPHATE MM 7.5 MMOL in IV NS 0.9% 100 ML IV SCH ×2 (12:24→16:19)
[2023-06-20 18:24] LABS: CARBON DIOXIDE 24 mmol/L (21-32)
[2023-06-20] MEDS: *INSULIN REGULAR(HUMULIN R)HUM 100 UNIT/ML VIAL SQ PRN (22:04)
[2023-06-21] VITALS: BP 153/89; TEMP 98.9; O2SAT 99
[2023-06-21 04:00] VITALS: BP 124/68; TEMP 99.2; O2SAT 100
[2023-06-21 05:33] LABS: CALCIUM, SERUM 8.1 mg/dL (8.5-10.1); CREATININE 1.2 mg/dL (0.6-1.3); MAGNESIUM 2.3 mg/dL (1.8-2.4); PHOSPHORUS 2.3 mg/dL (2.5-4.9); POTASSIUM 3.8 mmol/L (3.5-5.1)
[2023-06-21 05:34] LABS: BASOPHILS % (AUTO) 0.3 % (0.0-2.0); EOSINOPHILS # (AUTO) 0.1 K/uL (0.0-0.7); EOSINOPHILS % (AUTO) 1.5 % (0.0-6.0); HEMATOCRIT 26 % (39-51); HEMOGLOBIN 8.4 g/dL (13.5-17.5); LYMPHOCYTES # (AUTO) 1.9 K/uL (0.8-4.8); LYMPHOCYTES % (AUTO) 32.2 % (20.0-44.0); MEAN CORPUSCULAR HEMOGLOBIN 30 PG (26.0-33.0); MEAN CORPUSCULAR HGB CONC 33 g/dl (31.0-36.0); MEAN CORPUSCULAR VOLUME 90 fL (80-96); MONOCYTES # (AUTO) 0.5 K/uL (0.1-1.30); MONOCYTES % (AUTO) 8.2 % (2.0-12.0); NEUTROPHILS # (AUTO) 3.4 K/uL (1.8-8.9); NEUTROPHILS % (AUTO) 57.8 % (43.0-81.0); PLATELET COUNT (AUTO) 186 K/uL (150-450); RED BLOOD CELL COUNT(AUTO) 2.82 MIL/uL (4.5-6.0); RED CELL DISTRIBUTION WIDTH 12.7 % (11.5-15.0); WHITE BLOOD COUNT (AUTO) 5.9 K/uL (4.3-11.0)
[2023-06-21] MEDS: BLOOD SUGAR DIAGNOSTIC 1 EACH STRIP VI SCH ×4 (07:39→21:41)
[2023-06-21] MEDS: INSULIN REGULAR, HUMAN 100 UNIT/ML 3 ML VIAL SQ PRN ×3 (07:44→17:29)
[2023-06-21 08:00] VITALS: BP 143/90; TEMP 99.2; O2SAT 99
[2023-06-21] MEDS: IV NS 0.9% 1,000 ML IV PRN (11:45)
[2023-06-21 16:00] VITALS: BP 129/86; TEMP 98.6; O2SAT 100
[2023-06-21] MEDS ORDERED: K PHOS NEUTRAL 250 MG TABLET PO ONE (16:00)
[2023-06-21 20:00] VITALS: BP 136/93; TEMP 99.2; O2SAT 100
[2023-06-21] MEDS: INSULIN GLARGINE, 100 UNIT/ML CARTRIDGE SQ SCH (21:40)
[2023-06-21] MEDS: *INSULIN REGULAR(HUMULIN R)HUM 100 UNIT/ML VIAL SQ PRN (21:41)
[2023-06-22] VITALS: BP 149/86; TEMP 98.8; O2SAT 100
[2023-06-22] MEDS: IV NS 0.9% 1,000 ML IV PRN (00:33)
[2023-06-22 04:00] VITALS: BP 133/82; TEMP 99.1; O2SAT 100
[2023-06-22 04:59] LABS: BASOPHILS % (AUTO) 0.3 % (0.0-2.0); EOSINOPHILS # (AUTO) 0.1 K/uL (0.0-0.7); EOSINOPHILS % (AUTO) 2.5 % (0.0-6.0); HEMATOCRIT 25 % (39-51); HEMOGLOBIN 8.4 g/dL (13.5-17.5); LYMPHOCYTES # (AUTO) 1.6 K/uL (0.8-4.8); LYMPHOCYTES % (AUTO) 33.5 % (20.0-44.0); MEAN CORPUSCULAR HEMOGLOBIN 30 PG (26.0-33.0); MEAN CORPUSCULAR HGB CONC 34 g/dl (31.0-36.0); MEAN CORPUSCULAR VOLUME 91 fL (80-96); MONOCYTES # (AUTO) 0.4 K/uL (0.1-1.30); MONOCYTES % (AUTO) 7.9 % (2.0-12.0); NEUTROPHILS # (AUTO) 2.7 K/uL (1.8-8.9); NEUTROPHILS % (AUTO) 55.8 % (43.0-81.0); PLATELET COUNT (AUTO) 195 K/uL (150-450); RED BLOOD CELL COUNT(AUTO) 2.77 MIL/uL (4.5-6.0); RED CELL DISTRIBUTION WIDTH 12.6 % (11.5-15.0); WHITE BLOOD COUNT (AUTO) 4.8 K/uL (4.3-11.0)
[2023-06-22 05:31] LABS: CREATININE 0.9 mg/dL (0.6-1.3); MAGNESIUM 2.1 mg/dL (1.8-2.4); PHOSPHORUS 2.5 mg/dL (2.5-4.9); POTASSIUM 3.3 mmol/L (3.5-5.1)
[2023-06-22] MEDS ORDERED: POTASSIUM CHLORIDE 20 MEQ TAB.PRT.SR PO ONE (07:30)
[2023-06-22 08:00] VITALS: BP 131/81; TEMP 98.6; O2SAT 100
[2023-06-22] MEDS: BLOOD SUGAR DIAGNOSTIC 1 EACH STRIP VI SCH (08:04)
[2023-06-22] MEDS: INSULIN REGULAR, HUMAN 100 UNIT/ML 3 ML VIAL SQ PRN (08:07)
[2023-06-22] MEDS: INSULIN GLARGINE, 100 UNIT/ML CARTRIDGE SQ SCH (08:09)
[2023-06-22] MEDS ORDERED: INSU100V7 SQ (09:08)
[2023-06-22] MEDS ORDERED: INSU100V11 SQ (09:08)
== END 2023-06-22 11:30 | disposition home or self-care (01) | DRG 420 ==
LOC: ER 13:57 → TRANSITION 19:02 → ICU 23:49 → TELE1 06-22 09:32
PROVIDERS: ADMIT Internal Medicine; ATTEND Internal Medicine
DX: E10.10 Type 1 diabetes mellitus with ketoacidosis without coma (principal); N17.0 Acute kidney failure with tubular necrosis; E83.39 Other disorders of phosphorus metabolism; T38.3X6A Underdosing of insulin and oral hypoglycemic [antidiabetic] drugs, initial encounter; Y92.039 Unspecified place in apartment as the place of occurrence of the external cause; Z91.128 Patient's intentional underdosing of medication regimen for other reason; Z79.4 Long term (current) use of insulin; E87.5 Hyperkalemia; D64.9 Anemia, unspecified; F32.9 Major depressive disorder, single episode, unspecified; E86.9 Volume depletion, unspecified; D72.829 Elevated white blood cell count, unspecified
CPT/HCPCS: 36415; 36600; 80048-TC; 80076-TC; 82010-TC; 82374-TC; 82803-TC; 82962-TC; 83690-TC; 83735-TC; 84100-TC; 85025-TC; 87081-TC; A4223; C9113; G0378; J1815; J2405; J3490; J7030; J7042; J7050

== ENCOUNTER 2023-10-19 09:47 | Inpatient (IN) | payer MEDICAID ==
[2023-10-19] VITALS (42 sets, daily range): BP systolic 53–149; BP diastolic 36–131; TEMP 97.3–98.1; O2SAT 99–100
[~2023-10-19] VITALS: Ht 175.3 cm; Wt 63.5 kg
[~2023-10-19 09:47] MED LIST changes: -INSU100I26 SQ; -INSU100I30 SQ; -INSU100I8 SQ; +INSU100V11 SQ; +INSU100V7 SQ; -OMEP20TA5 PO; -ONDA4TAB5 PO
[2023-10-19] MEDS: CALCIUM CHLORIDE 1,000 MG/10 ML DISP.SYRIN IV ONE (10:10)
[2023-10-19] MEDS: IV NS 0.9% 1,000 ML BAG IV ONE (10:10)
[2023-10-19] MEDS: SODIUM BICARBONATE SYR 50 MEQ/50 ML DISP.SYRIN IV ONE ×2 (10:11→16:05)
[2023-10-19] MEDS: INSULIN REGULAR, HUMAN 100 UNIT/ML 10 ML VIAL IV ONE (10:11)
[2023-10-19] MEDS ORDERED: INSULIN REGULAR, HUMAN 100 UNIT/ML 10 ML VIAL ONE (10:15)
[2023-10-19] MEDS ORDERED: PROPOFOL 100 ML ONE (10:19)
[2023-10-19 10:32] LABS: ABG BASE EXCESS -30.8 mmol/L; ABG OXYGEN SATURATION 99.6 % (92.0-98.5); ABG PCO2 19.1 mmHg (35.0-45.0); ABG PH 6.788 (7.350-7.450); ABG PO2 655.9 mmHg (75.0-100.0); ABG TOTAL HEMOGLOBIN 11.5 G/dL (13.5-18.0); COHb 0.3 % (0.5-1.5); MetHb 0.6 % (0.0-1.5); O2Hb 98.7 % (94.0-97.0); SITE, ABG Left Radial; VENT MODE, BG AC 20 450 100% +5
[2023-10-19] MEDS ORDERED: FENTANYL PF 100MCG/2ML AMPUL ONE (10:48)
[2023-10-19] MEDS: FENTANYL PF 100MCG/2ML AMPUL IV ONE (10:53)
[2023-10-19] MEDS ORDERED: MIDAZOLAM HCL 50 MG in IV NS 0.9% 40 ML IV PRN ×2 (11:00→16:30)
[2023-10-19 11:05] LABS: BASOPHILS # (AUTO) 0.2 K/uL (0.0-0.2); BASOPHILS % (AUTO) 0.5 % (0.0-2.0); EOSINOPHILS # (AUTO) 0.1 K/uL (0.0-0.7); EOSINOPHILS % (AUTO) 0.3 % (0.0-6.0); HEMATOCRIT 41 % (39-51); HEMOGLOBIN 10.1 g/dL (13.5-17.5); LYMPHOCYTES # (AUTO) 3.3 K/uL (0.8-4.8); LYMPHOCYTES % (AUTO) 8.4 % (20.0-44.0); MEAN CORPUSCULAR HEMOGLOBIN 28 PG (26.0-33.0); MEAN CORPUSCULAR HGB CONC 25 g/dl (31.0-36.0); MEAN CORPUSCULAR VOLUME 114 fL (80-96); MONOCYTES # (AUTO) 3.1 K/uL (0.1-1.30); MONOCYTES % (AUTO) 7.9 % (2.0-12.0); NEUTROPHILS # (AUTO) 33.1 K/uL (1.8-8.9); NEUTROPHILS % (AUTO) 82.9 % (43.0-81.0); PLATELET COUNT (AUTO) 390 K/uL (150-450); RED BLOOD CELL COUNT(AUTO) 3.61 MIL/uL (4.5-6.0); RED CELL DISTRIBUTION WIDTH 15.2 % (11.5-15.0)
[2023-10-19 11:07] LABS: SERUM AMMONIA 70 umol/L (11-32)
[2023-10-19 11:09] LABS: WHITE BLOOD COUNT (AUTO) 39.8 K/uL (4.3-11.0)
[2023-10-19 11:11] LABS: INR 1.1 (0.91-1.10); PARTIAL THROMBOPLASTIN TIME 31.6 SEC (24.3-34.3); PROTHROMBIN TIME 11.6 SECS (9.2-11.1)
[2023-10-19 11:16] LABS: APPEARANCE,URINE CLEAR (CLEAR); BILIRUBIN,URINE NEGATIVE (NEGATIVE); BLOOD, URINE TRACE-INTA Ery/uL (NEGATIVE); COLOR,URINE YELLOW (YELLOW); KETONES,URINE 2+ mg/dL (NEGATIVE); LEUKOCYTE ESTERASE ,URINE NEGATIVE (NEGATIVE); NITRITE, URINE NEGATIVE (NEGATIVE); PH,URINE 5.5 (5.0-8.0); PROTEIN,URINE NEGATIVE (NEGATIVE); UGLUCOSE 3+ mg/dL (NEGATIVE); UROBILINOGEN,URINE 0.2 EU/dL (0.2)
[2023-10-19 11:20] LABS: THYROID STIMULATING HORMONE 5.846 uIU/mL (0.358-3.74)
[2023-10-19 11:21] LABS: ALANINE AMINOTRANSFERASE 30 U/L (12-78); ALBUMIN 3.2 g/dL (3.4-5.0); ALCOHOL, BLOOD < 3 mg/dL (0-10); ALKALINE PHOSPHATASE 160 U/L (46-116); ASPARTATE AMINOTRANSFERASE 17 U/L (15-37); BILIRUBIN,DIRECT 0.1 mg/dL (0.0-0.2); BILIRUBIN,TOTAL 0.4 mg/dL (0.2-1.0); CALCIUM, SERUM 10.3 mg/dL (8.5-10.1); CREATININE 5.5 mg/dL (0.6-1.3); SALICYLATE 5.7 mg/dL (2.8-20.0); TOTAL PROTEIN, SERUM 6.6 g/dL (6.4-8.2)
[2023-10-19 11:24] LABS: ADD URINE CULTURE NO; BACTERIA,URINE None seen /HPF (None Seen); SQUAMOUS EPITHELIAL CELL,UR Rare /HPF (None Seen); WBC,URINE 0-2 /HPF (0-3)
[2023-10-19] MEDS: PIPERACILLIN /TAZOBACTAM 3.375 G in IV D5W 50 ML IV ONE (11:30)
[2023-10-19] MEDS: FENTANYL CITRAT IV 2,500 MCG in IV NS 0.9% 200 ML IV PRN ×2 (11:30→16:37)
[2023-10-19 11:35] LABS: LACTIC ACID 9.9 mmol/L (0.4-2.0)
[2023-10-19 11:37] LABS: UREA NITROGEN, BLOOD 83 mg/dL (7-18)
[2023-10-19 11:38] LABS: CARBON DIOXIDE 6 mmol/L (21-32); CHLORIDE 72 mmol/L (98-107); GLUCOSE 1616 mg/dL (74-106); POTASSIUM 8.3 mmol/L (3.5-5.1); SODIUM SERUM 118 mmol/L (136-145)
[2023-10-19 11:39] LABS: ACETAMINOPHEN <10 ug/ml (10-30)
[2023-10-19 11:53] LABS: AMPHETAMINE, URINE NEGATIVE (NEGATIVE); BARBITURATE, URINE NEGATIVE (NEGATIVE); BENZODIAZEPINE, URINE NEGATIVE (NEGATIVE); COCCAINE, URINE NEGATIVE (NEGATIVE); OPIATE, URINE NEGATIVE (NEGATIVE); PHENCYCLIDINE SCREEN,URINE NEGATIVE (NEGATIVE)
[2023-10-19 11:57] LABS: CANNABINOID, URINE POSITIVE (NEGATIVE)
[2023-10-19] MEDS ORDERED: ACETAMINOPHEN 325 MG TABLET PO PRN (12:00)
[2023-10-19] MEDS: SODIUM POLYSTYRENE SULFONATE 15 G/60 ML BOTTLE RC ONE (12:00)
[2023-10-19] MEDS ORDERED: ONDANSETRON HCL/PF 4 MG/2 ML VIAL IVP PRN (12:00)
[2023-10-19] MEDS ORDERED: ZOLPIDEM TARTRATE 5 MG TABLET PO PRN (12:00)
[2023-10-19] MEDS ORDERED: MAG HYDROX/AL HYDROX/SIMETH 30 ML UDC PO PRN (12:00)
[2023-10-19] MEDS ORDERED: MAGNESIUM HYDROXIDE 30 ML UDC PO PRN (12:00)
[2023-10-19] MEDS ORDERED: Z GUARD REMEDY 4 OZ OINT TP PRN (12:00)
[2023-10-19] MEDS ORDERED: IV NS 0.9% 1,000 ML IV PRN (12:00)
[2023-10-19] MEDS ORDERED: ALBUTEROL FS 2.5 MG/3 ML VIAL.NEB ONE (12:18)
[2023-10-19] MEDS: IV NS 0.9% 500 ML BAG IV ONE (12:20)
[2023-10-19] MEDS: ALBUTEROL FS 2.5 MG/3 ML VIAL.NEB NEB ONE (12:23)
[2023-10-19] MEDS: INSULIN REGULAR, HUMAN 100 UNITS in IV NS 0.9% 100 ML IV PRN (12:45)
[2023-10-19] MEDS: IV NS 0.9% 1,000 ML IV PRN ×2 (13:00→17:51)
[2023-10-19] MEDS ORDERED: PIPERACI/TAZO 3.375GM/D5W 50ML PB IV ONE (13:18)
[2023-10-19] MEDS ORDERED: VANCOMYCIN 1 GM /D5W 250 ML PB IV ONE (13:31)
[2023-10-19 13:44] LABS: CALCIUM, SERUM 8.4 mg/dL (8.5-10.1); CREATININE 5.1 mg/dL (0.6-1.3); MAGNESIUM 3.4 mg/dL (1.8-2.4)
[2023-10-19] MEDS: VANCOMYCIN 1 GM in IV D5W 250 ML IV ONE (13:50)
[2023-10-19 14:09] LABS: PHOSPHORUS 15.6 mg/dL (2.5-4.9); POTASSIUM 7.9 mmol/L (3.5-5.1)
[2023-10-19 14:25] LABS: CALCIUM, SERUM 8.1 mg/dL (8.5-10.1); CREATININE 5.2 mg/dL (0.6-1.3); MAGNESIUM 3.1 mg/dL (1.8-2.4)
[2023-10-19 14:29] LABS: PHOSPHORUS 14.8 mg/dL (2.5-4.9); POTASSIUM 7.3 mmol/L (3.5-5.1)
[2023-10-19 15:50] LABS: ABG BASE EXCESS -25.3 mmol/L; ABG OXYGEN SATURATION 99.2 % (92.0-98.5); ABG PCO2 15.8 mmHg (35.0-45.0); ABG PH 7.015 (7.350-7.450); ABG PO2 266.6 mmHg (75.0-100.0); ABG TOTAL HEMOGLOBIN 10.9 G/dL (13.5-18.0); AaDO2 0.4 mmHg; COHb 0.3 % (0.5-1.5); MetHb 0.4 % (0.0-1.5); O2Hb 98.5 % (94.0-97.0); PEEP,BG 5 cm H2O; SITE, ABG Right Radial; VT, ABG 450 mL
[2023-10-19] MEDS: INSULIN REGULAR, HUMAN 100 UNIT in IV NS 0.9% 99 ML IV PRN (16:42)
[2023-10-19] MEDS: BLOOD SUGAR DIAGNOSTIC 1 EACH STRIP IN SCH (17:15)
[2023-10-19] MEDS ORDERED: NOREPINEPHRINE 8 MG in IV D5W 242 ML IV PRN (17:30)
[2023-10-19] MEDS: NOREPINEPHRINE 32 MG in IV NS 0.9% 218 ML IV PRN (17:41)
[2023-10-19] MEDS: MIDAZOLAM HCL 100 MG in IV NS 0.9% 80 ML IV PRN (17:50)
[2023-10-19 17:54] LABS: MAGNESIUM 2.3 mg/dL (1.8-2.4); PHOSPHORUS 4.6 mg/dL (2.5-4.9); POTASSIUM 3.9 mmol/L (3.5-5.1)
[2023-10-19] MEDS ORDERED: LACTULOSE 10 G/15 ML UDC (PYXIS) PO PRN (18:30)
[2023-10-19 19:16] LABS: ANISOCYTOSIS 1+; BAND % (MANUAL) 2 % (0.0-5.0); LYMPHOCYTES % (MANUAL) 11 % (16-48); MONOCYTES % (MANUAL) 3 % (0-11.0); MYELOCYTES % 2 % (0-0); NEUTROPHILS % (MANUAL) 82 (42-76); OVALOCYTES 1+; PLATELET ESTIMATE ADEQUATE
[2023-10-19] MEDS ORDERED: CALCIUM CHLORIDE 1,000 MG/10 ML DISP.SYRIN IV ONE (19:33)
[2023-10-19 20:44] LABS: CALCIUM, SERUM 7.8 mg/dL (8.5-10.1); CREATININE 2.5 mg/dL (0.6-1.3); POTASSIUM 3.7 mmol/L (3.5-5.1)
[2023-10-19] MEDS: HEPARIN SODIUM, PORCINE 5000 UNITS/1 ML VIAL SQ SCH (22:49)
[2023-10-19] MEDS: PIPERACILLIN /TAZOBACTAM 3.375 G in IV D5W 100 ML IV SCH (22:50)
[2023-10-19] MEDS: Sodium Bicarbonate 100 MEQ in IV D5W 1,000 ML IV PRN (23:51)
[2023-10-20] VITALS (71 sets, daily range): BP systolic 81–173; BP diastolic 55–81; TEMP 97.7–98.4; O2SAT 86–100
[2023-10-20 00:50] LABS: CREATININE 2.4 mg/dL (0.6-1.3); POTASSIUM 3.6 mmol/L (3.5-5.1)
[2023-10-20 04:51] LABS: BASOPHILS % (AUTO) 0.1 % (0.0-2.0); EOSINOPHILS % (AUTO) 0.2 % (0.0-6.0); HEMATOCRIT 27 % (39-51); HEMOGLOBIN 9.3 g/dL (13.5-17.5); LYMPHOCYTES # (AUTO) 1.7 K/uL (0.8-4.8); LYMPHOCYTES % (AUTO) 7.5 % (20.0-44.0); MEAN CORPUSCULAR HEMOGLOBIN 28 PG (26.0-33.0); MEAN CORPUSCULAR HGB CONC 34 g/dl (31.0-36.0); MEAN CORPUSCULAR VOLUME 83 fL (80-96); MONOCYTES # (AUTO) 2.5 K/uL (0.1-1.30); MONOCYTES % (AUTO) 11.2 % (2.0-12.0); NEUTROPHILS # (AUTO) 17.9 K/uL (1.8-8.9); PLATELET COUNT (AUTO) 206 K/uL (150-450); RED CELL DISTRIBUTION WIDTH 15.1 % (11.5-15.0)
[2023-10-20 05:15] LABS: ALBUMIN 2.6 g/dL (3.4-5.0); BILIRUBIN,TOTAL 0.5 mg/dL (0.2-1.0); CALCIUM, SERUM 7.7 mg/dL (8.5-10.1); CREATININE 2.2 mg/dL (0.6-1.3); MAGNESIUM 1.9 mg/dL (1.8-2.4); POTASSIUM 3.5 mmol/L (3.5-5.1); TOTAL PROTEIN, SERUM 5.5 g/dL (6.4-8.2)
[2023-10-20 07:46] LABS: ABG BASE EXCESS 0.3 mmol/L; ABG OXYGEN SATURATION 98.6 % (92.0-98.5); ABG PCO2 31.9 mmHg (35.0-45.0); ABG PH 7.481 (7.350-7.450); ABG PO2 205.2 mmHg (75.0-100.0); ABG TOTAL HEMOGLOBIN 10.3 G/dL (13.5-18.0); AaDO2 43.3 mmHg; COHb 0.3 % (0.5-1.5); MetHb 0.3 % (0.0-1.5); PEEP,BG 5 cm H2O; SITE, ABG Right Radial; VT, ABG 450 mL
[2023-10-20] MEDS: PANTOPRAZOLE 40 MG VIAL IV SCH (08:15)
[2023-10-20 08:45] LABS: CALCIUM, SERUM 7.5 mg/dL (8.5-10.1); CREATININE 2.3 mg/dL (0.6-1.3); POTASSIUM 3.7 mmol/L (3.5-5.1)
[2023-10-20] MEDS ORDERED: DC PROPOFOL WHEN EXTUBATED XX PRN (09:00)
[2023-10-20] MEDS ORDERED: VANCOMYCIN POST DIALYSIS 500MG IV PRN (09:30)
[2023-10-20] MEDS: PIPERACILLIN /TAZOBACTAM 2.25 G in IV D5W 50 ML IV SCH (10:09)
[2023-10-20] MEDS: Sodium Bicarbonate 100 MEQ in IV D5W 1,000 ML IV SCH (11:01)
[2023-10-20 13:41] LABS: CALCIUM, SERUM 7.4 mg/dL (8.5-10.1); CREATININE 2.1 mg/dL (0.6-1.3); POTASSIUM 3.6 mmol/L (3.5-5.1)
[2023-10-20] MEDS: VANCOMYCIN 1 GM in IV D5W 250ml IV ONE (14:12)
[2023-10-20] MEDS ORDERED: NOREPINEPHRINE 8 MG in IV D5W 250ML IV PRN (17:30)
[2023-10-20] MEDS ORDERED: NOREPINEPHRINE 8 MG in IV D5W 492 ML IV PRN (17:30)
[2023-10-20 17:46] LABS: CALCIUM, SERUM 7.5 mg/dL (8.5-10.1); CREATININE 2.1 mg/dL (0.6-1.3); POTASSIUM 3.8 mmol/L (3.5-5.1)
[2023-10-20 21:00] LABS: CALCIUM, SERUM 7.7 mg/dL (8.5-10.1); POTASSIUM 3.6 mmol/L (3.5-5.1)
[2023-10-21] VITALS (22 sets, daily range): BP systolic 100–148; BP diastolic 52–94; TEMP 98.2–99; O2SAT 93–99
[2023-10-21] MEDS ORDERED: GUAIFENESIN/CODEINE 10 ML UDC PO PRN
[2023-10-21] MEDS: GUAIFENESIN/D-METHORPHAN HB 5 ML UDC PO PRN (00:49)
[2023-10-21 01:03] LABS: CALCIUM, SERUM 7.8 mg/dL (8.5-10.1); POTASSIUM 3.5 mmol/L (3.5-5.1)
[2023-10-21 05:09] LABS: BASOPHILS % (AUTO) 0.1 % (0.0-2.0); EOSINOPHILS % (AUTO) 0.1 % (0.0-6.0); HEMATOCRIT 26 % (39-51); HEMOGLOBIN 8.7 g/dL (13.5-17.5); LYMPHOCYTES # (AUTO) 1.3 K/uL (0.8-4.8); LYMPHOCYTES % (AUTO) 11.9 % (20.0-44.0); MEAN CORPUSCULAR HEMOGLOBIN 28 PG (26.0-33.0); MEAN CORPUSCULAR HGB CONC 33 g/dl (31.0-36.0); MEAN CORPUSCULAR VOLUME 85 fL (80-96); MONOCYTES # (AUTO) 0.9 K/uL (0.1-1.30); MONOCYTES % (AUTO) 7.8 % (2.0-12.0); NEUTROPHILS % (AUTO) 80.1 % (43.0-81.0); PLATELET COUNT (AUTO) 116 K/uL (150-450); RED BLOOD CELL COUNT(AUTO) 3.08 MIL/uL (4.5-6.0); RED CELL DISTRIBUTION WIDTH 15.3 % (11.5-15.0); WHITE BLOOD COUNT (AUTO) 11.3 K/uL (4.3-11.0)
[2023-10-21 05:34] LABS: CALCIUM, SERUM 7.7 mg/dL (8.5-10.1); MAGNESIUM 1.9 mg/dL (1.8-2.4); PHOSPHORUS 1.5 mg/dL (2.5-4.9); POTASSIUM 3.4 mmol/L (3.5-5.1)
[2023-10-21] MEDS ORDERED: VANCOMYCIN POST DIALYSIS 500MG IV PRN (08:00)
[2023-10-21 08:10] LABS: PTH, INTACT 120 pg/mL (15-65)
[2023-10-21 09:07] LABS: CALCIUM, SERUM 7.8 mg/dL (8.5-10.1); CREATININE 1.7 mg/dL (0.6-1.3); POTASSIUM 3.1 mmol/L (3.5-5.1)
[2023-10-21] MEDS: POTASSIUM CL. PREMIX PERIPHER. 50 ML IV SCH (09:46)
[2023-10-21] MEDS ORDERED: DEXTROSE 50%-WATER 50 ML DISP.SYRIN IV PRN (12:00)
[2023-10-21 12:11] LABS: *SPE A/G RATIO 1.4 (0.7-1.7); *SPE ALBUMIN 2.9 g/dL (2.9-4.4); *SPE ALPHA-1-GLOBULIN 0.2 g/dL (0.0-0.4); *SPE ALPHA-2-GLOBULIN 0.5 g/dL (0.4-1.0); *SPE BETA GLOBULIN 0.7 g/dL (0.7-1.3); *SPE GLOBULIN, TOTAL 2.1 g/dL (2.2-3.9); *SPE M-SPIKE Not Observed g/dL (Not Observed); *SPEGAMMA GLOBULIN 0.7 g/dL (0.4-1.8)
[2023-10-21] MEDS: BLOOD SUGAR DIAGNOSTIC 1 EACH STRIP VI SCH (12:13)
[2023-10-21 12:26] LABS: CALCIUM, SERUM 7.7 mg/dL (8.5-10.1); CREATININE 1.6 mg/dL (0.6-1.3); POTASSIUM 3.3 mmol/L (3.5-5.1)
[2023-10-21] MEDS: INSULIN GLARGINE, 100 UNIT/ML CARTRIDGE SQ ONE (12:38)
[2023-10-21] MEDS ORDERED: VANCOMYCIN 750 MG in IV D5W 250 ML IV SCH (13:00)
[2023-10-21 13:35] LABS: APPEARANCE,URINE CLOUDY (CLEAR); BILIRUBIN,URINE 1+ (NEGATIVE); BLOOD, URINE 3+ Ery/uL (NEGATIVE); COLOR,URINE DARK YELLOW (YELLOW); KETONES,URINE 2+ mg/dL (NEGATIVE); LEUKOCYTE ESTERASE ,URINE NEGATIVE (NEGATIVE); NITRITE, URINE NEGATIVE (NEGATIVE); PH,URINE 8.5 (5.0-8.0); PROTEIN,URINE 1+ mg/dl (NEGATIVE); UGLUCOSE 2+ mg/dL (NEGATIVE); UROBILINOGEN,URINE 0.2 EU/dL (0.2)
[2023-10-21 13:58] LABS: ADD URINE CULTURE NO; BACTERIA,URINE Rare /HPF (None Seen); EOSINOPHIL,URINE None Seen; RBC,URINE TOO NUMEROUS TO COUN /HPF (0-2); SQUAMOUS EPITHELIAL CELL,UR Few /HPF (None Seen)
[2023-10-21] MEDS ORDERED: LACTULOSE 10 G/15 ML UDC (PYXIS) PO PRN (14:00)
[2023-10-21 14:20] LABS: CREATININE, URINE 66.3 MG/DL (30.0-125.0)
[2023-10-21] MEDS: K PHOS NEUTRAL 250 MG TABLET PO ONE (16:22)
[2023-10-21] MEDS: INSULIN REGULAR, HUMAN 100 UNIT/ML 3 ML VIAL SQ PRN (17:25)
[2023-10-21] MEDS: VANCOMYCIN 750 MG in IV D5W 250 ML IV SCH (17:29)
[2023-10-21] MEDS: *INSULIN REGULAR(HUMULIN R)HUM 100 UNIT/ML VIAL SQ PRN (21:51)
[2023-10-22 04:00] VITALS: BP 125/87; TEMP 98.1; O2SAT 98
[2023-10-22 08:00] VITALS: BP 129/74; TEMP 98.5; O2SAT 98
[2023-10-22 08:04] LABS: CALCIUM, SERUM 8.5 mg/dL (8.5-10.1); CREATININE 1.5 mg/dL (0.6-1.3); MAGNESIUM 1.9 mg/dL (1.8-2.4); PHOSPHORUS 1.7 mg/dL (2.5-4.9)
[2023-10-22 11:45] LABS: BASOPHILS % (AUTO) 0.3 % (0.0-2.0); EOSINOPHILS # (AUTO) 0.1 K/uL (0.0-0.7); EOSINOPHILS % (AUTO) 1.3 % (0.0-6.0); HEMATOCRIT 30 % (39-51); LYMPHOCYTES # (AUTO) 0.9 K/uL (0.8-4.8); LYMPHOCYTES % (AUTO) 11.9 % (20.0-44.0); MEAN CORPUSCULAR HEMOGLOBIN 29 PG (26.0-33.0); MEAN CORPUSCULAR HGB CONC 33 g/dl (31.0-36.0); MEAN CORPUSCULAR VOLUME 87 fL (80-96); MONOCYTES # (AUTO) 0.5 K/uL (0.1-1.30); NEUTROPHILS # (AUTO) 6.1 K/uL (1.8-8.9); NEUTROPHILS % (AUTO) 79.5 % (43.0-81.0); PLATELET COUNT (AUTO) 94 K/uL (150-450); RED BLOOD CELL COUNT(AUTO) 3.48 MIL/uL (4.5-6.0); RED CELL DISTRIBUTION WIDTH 14.3 % (11.5-15.0); WHITE BLOOD COUNT (AUTO) 7.7 K/uL (4.3-11.0)
[2023-10-22 12:29] LABS: ANISOCYTOSIS 1+; BASOPHILS % (MANUAL) 0 % (0.0-2.0); EOSINOPHILS % (MANUAL) 2 % (0-4); LYMPHOCYTES % (MANUAL) 9 % (16-48); MONOCYTES % (MANUAL) 6 % (0-11.0); NEUTROPHILS % (MANUAL) 83 (42-76); PLATELET ESTIMATE DECREASED
[2023-10-22] MEDS: K PHOS NEUTRAL 250 MG TABLET PO ONE (15:14)
[2023-10-22 16:00] VITALS: BP 142/76; TEMP 98.5; O2SAT 98
[2023-10-22 21:18] VITALS: BP 131/86; TEMP 97.7; O2SAT 100
[2023-10-22] MEDS ORDERED: INSULIN GLARGINE, 100 UNIT/ML CARTRIDGE SQ SCH (22:00)
[2023-10-22] MEDS: INSULIN GLARGINE, 100 UNIT/ML CARTRIDGE SQ SCH (22:47)
[2023-10-23 04:00] VITALS: BP 139/93; TEMP 99.2; O2SAT 100
[2023-10-23 04:05] LABS: BASOPHILS % (AUTO) 0.5 % (0.0-2.0); EOSINOPHILS # (AUTO) 0.2 K/uL (0.0-0.7); EOSINOPHILS % (AUTO) 2.5 % (0.0-6.0); HEMATOCRIT 29 % (39-51); HEMOGLOBIN 9.6 g/dL (13.5-17.5); LYMPHOCYTES % (AUTO) 15.2 % (20.0-44.0); MEAN CORPUSCULAR HEMOGLOBIN 29 PG (26.0-33.0); MEAN CORPUSCULAR HGB CONC 34 g/dl (31.0-36.0); MEAN CORPUSCULAR VOLUME 86 fL (80-96); MONOCYTES # (AUTO) 0.5 K/uL (0.1-1.30); MONOCYTES % (AUTO) 7.7 % (2.0-12.0); NEUTROPHILS # (AUTO) 4.6 K/uL (1.8-8.9); NEUTROPHILS % (AUTO) 74.1 % (43.0-81.0); PLATELET COUNT (AUTO) 116 K/uL (150-450); RED BLOOD CELL COUNT(AUTO) 3.35 MIL/uL (4.5-6.0); RED CELL DISTRIBUTION WIDTH 14.4 % (11.5-15.0); WHITE BLOOD COUNT (AUTO) 6.3 K/uL (4.3-11.0)
[2023-10-23 04:24] LABS: CALCIUM, SERUM 8.6 mg/dL (8.5-10.1); CREATININE 1.2 mg/dL (0.6-1.3); MAGNESIUM 1.8 mg/dL (1.8-2.4); PHOSPHORUS 2.1 mg/dL (2.5-4.9); POTASSIUM 3.7 mmol/L (3.5-5.1)
[2023-10-23 08:00] VITALS: BP 150/95; TEMP 99; O2SAT 100
[2023-10-23] MEDS: PANTOPRAZOLE 40 MG TABLET.DR PO SCH (08:29)
[2023-10-23] MEDS ORDERED: PANTOPRAZOLE 40 MG TABLET.DR PO SCH (09:00)
[2023-10-23] MEDS ORDERED: MAGNESIUM OXIDE 400 MG TABLET PO ONE (11:00)
[2023-10-23] MEDS: ZOSYN IVPB 3.375 G in IV D5W 50ml IV SCH (11:21)
[2023-10-23] MEDS: Sodium Phosphate 15 MMOL in IV NS 0.9% 245 ML IV SCH (11:53)
[2023-10-23] MEDS ORDERED: INSU100V11 SQ (12:14)
[2023-10-23] MEDS ORDERED: INSU100V7 SQ (12:14)
[2023-10-23] MEDS ORDERED: LACT10SO58 PO (12:14)
[2023-10-24] MEDS ORDERED: PANTOPRAZOLE 40 MG TABLET.DR PO SCH (07:30)
== END 2023-10-23 13:00 | disposition home or self-care (01) | DRG 420 ==
LOC: ER 09:49 → ICU 15:00 → MEDSG1 10-21 18:13
PROVIDERS: ADMIT Student in an Organized Health Care Education/Training Program; ATTEND Student in an Organized Health Care Education/Training Program
PROC: 5A1945Z Respiratory Ventilation, 24-96 Consecutive Hours (ICD-10-PCS; principal; 2023-10-19)
PROC: 0BH18EZ Insertion of Endotracheal Airway into Trachea, Via Natural or Artificial Opening Endoscopic (ICD-10-PCS; 2023-10-19)
PROC: 02HV33Z Insertion of Infusion Device into Superior Vena Cava, Percutaneous Approach (ICD-10-PCS; 2023-10-19)
PROC: B548ZZA Ultrasonography of Superior Vena Cava, Guidance (ICD-10-PCS; 2023-10-19)
DX: E10.10 Type 1 diabetes mellitus with ketoacidosis without coma (principal); N17.0 Acute kidney failure with tubular necrosis; J96.01 Acute respiratory failure with hypoxia; E44.0 Moderate protein-calorie malnutrition; D64.9 Anemia, unspecified; E83.39 Other disorders of phosphorus metabolism; E86.9 Volume depletion, unspecified; E87.5 Hyperkalemia; Z79.4 Long term (current) use of insulin; Z91.199 Patient's noncompliance with other medical treatment and regimen due to unspecified reason; R57.1 Hypovolemic shock; I44.0 Atrioventricular block, first degree; D72.823 Leukemoid reaction; E88.9 Metabolic disorder, unspecified; Z68.20 Body mass index [BMI] 20.0-20.9, adult
CPT/HCPCS: 31720; 36415; 36600; 71045-TC; 76770-TC; 80048-TC; 80053-TC; 80076-TC; 80202-TC; 81001; 82010-TC; 82140-TC; 82550-TC; 82553; 82570-TC; 82803-TC; 82962-TC; 83605-TC; 83735-TC; 83970; 84100-TC; 84155; 84165; 84300-TC; 84439-TC; 84443-TC; 84484-TC; 85025-TC; 85730-TC; 87040-TC; 90935-TC; 94002-TC; 94003-TC; 94799-TC; 99082-TC; A4223; A9563; C9113; G0378; G0480; J1644; J1815; J2250; J2543; J3010; J3370; J3371; J3480; J3490; J7030; J7040; J7050; J7060; J7070

== ENCOUNTER 2023-10-31 09:33 | Emergency (ER) | payer MEDICAID ==
[~2023-10-31] VITALS: Ht 170.2 cm; Wt 63.5 kg
[~2023-10-31 09:33] MED LIST changes: +LACT10SO58 PO
[2023-10-31 09:37] VITALS: BP 105/71; TEMP 98.3; O2SAT 99
== END 2023-10-31 10:26 | disposition home or self-care (01) ==
LOC: ER 09:33
DX: E10.40 Type 1 diabetes mellitus with diabetic neuropathy, unspecified (principal)
CPT/HCPCS: 82962-TC